=== PATIENT | male | born 1990 | race Two or more races ===

== ENCOUNTER 2016-11-18 15:36 | Emergency (ER) | payer SELFPAY ==
[~2016-11-18] VITALS: Ht 182.9 cm; Wt 76.3 kg
[2016-11-18 15:53] VITALS: BP 132/78
[2016-11-18 17:35] LABS: ADD MEDTOX COMMENT Y; AMPHETAMINE NEGATIVE (500 ng/mL); BARBITURATES NEGATIVE (200 ng/mL); BENZODIAZEPINES NEGATIVE (150 ng/mL); COCAINE NEGATIVE (150 ng/mL); INTERNAL CONTROLS VALID? YES; METHADONE NEGATIVE (200 ng/mL); METHAMPHETAMINE NEGATIVE (500 ng/mL); OPIATES (MORPHINE) NEGATIVE (100 ng/mL); OXYCODONE NEGATIVE (100 ng/mL); PHENCYCLIDINE NEGATIVE (25 ng/mL); PROPOXYPHENE NEGATIVE (300 ng/mL); THC CANNABINOIDS PRESUMPTIVE POSITIVE (50 ng/mL); TRICYCLIC ANTIDEPRESSANTS NEGATIVE (300 ng/mL)
== END 2016-11-18 18:00 | disposition left against medical advice (07) ==
LOC: EME 15:36
DX: F32.9 Major depressive disorder, single episode, unspecified (principal); R45.4 Irritability and anger; R45.851 Suicidal ideations; Z53.21 Procedure and treatment not carried out due to patient leaving prior to being seen by health care provider
CPT/HCPCS: 80048; 84999; 85027; G0480

== ENCOUNTER 2017-02-08 08:22 | Emergency (ER) | payer OTHER ==
[~2017-02-08] VITALS: Ht 182.9 cm; Wt 75.3 kg
[2017-02-08 08:53] LABS: ADD MIUA? NO; BILIRUBIN NEGATIVE; BLOOD NEGATIVE; COLOR YELLOW ((YELLOW)); GLUCOSE (STRIP) NEGATIVE; KETONES NEGATIVE; LEUKOCYTES NEGATIVE; NITRITE NEGATIVE; PROTEIN (STRIP) NEGATIVE; SPECIFIC GRAVITY 1.021 (1.000-1.030); UCUL ADDED? NO; UROBILINOGEN 0.2 MG/DL (0.2-1.0)
[2017-02-08 09:45] LABS: CHLORIDE 107 mEq/L (99-109); POTASSIUM 3.7 mEq/L (3.7-5.4); SODIUM 141 mEq/L (136-147)
[2017-02-08 09:46] LABS: GLUCOSE 84 mg/dL (70-99)
[2017-02-08 09:48] LABS: ANION GAP 9 MEQ/L (2-14)
[2017-02-08 09:49] LABS: HEMATOCRIT 48.3 % (38.0-50.0); MCH 22.5 PG (29.0-34.0); MCHC 31.3 G/DL (30.0-36.0); MCV 71.9 FL (86-99); RBC DIS.WIDTH-CV 17.4 % (11.8-14.6); RBC DIS.WIDTH-SD 39.9 % (39-53); RED BLOOD COUNT 6.72 M/uL (4.00-5.50); WHITE BLOOD COUNT 6.3 K/uL (4.1-10.2)
[2017-02-08 09:51] LABS: UREA NITROGEN (BUN) 13 mg/dL (9-23)
[2017-02-08 09:56] LABS: GFR ESTIMATE (CALCULATED) > 59 mL/min/
[2017-02-08] MEDS ORDERED: MOTRIN800 MG PO (10:34)
[2017-02-08] MEDS ORDERED: COLACE100 MG PO (10:34)
[2017-02-08 11:19] LABS: PLAT.SUFFICIENCY DECREASED; PLATELET COUNT 125 K/uL (156-360)
[2017-02-08 11:40] VITALS: BP 128/61
== END 2017-02-08 11:40 | disposition home or self-care (01) ==
LOC: EME 08:22
DX: K59.00 Constipation, unspecified (principal); R10.9 Unspecified abdominal pain; Z71.6 Tobacco abuse counseling; F17.210 Nicotine dependence, cigarettes, uncomplicated
CPT/HCPCS: 74020; 80048; 81003; 85027; 99281; 99284; J1885

== ENCOUNTER 2017-06-18 23:25 | Emergency (ER) | payer OTHER ==
[~2017-06-18] VITALS: Ht 182.9 cm; Wt 75.1 kg
[~2017-06-18 23:25] MED LIST: COLACE100 MG PO; MOTRIN800 MG PO
[2017-06-18 23:43] VITALS: BP 127/82
== END 2017-06-19 01:00 | disposition home or self-care (01) ==
LOC: EME 23:25
DX: S00.83XA Contusion of other part of head, initial encounter (principal); S50.811A Abrasion of right forearm, initial encounter; S00.01XA Abrasion of scalp, initial encounter; Y09 Assault by unspecified means
CPT/HCPCS: 70486; 99281; 99284